=== PATIENT | female | born 1940 | race Caucasian/White ===

== ENCOUNTER 2017-03-13 17:18 | Inpatient (IN) ==
[2017-03-13] MEDS ORDERED: ONDANSETRON 4 MG/2 ML VIAL IV STA (18:14)
[2017-03-13] MEDS ORDERED: ONDANSETRON 4 MG/2 ML VIAL ONE (18:15)
[2017-03-13] MEDS ORDERED: methylPREDNISolone SOD SUC 125 MG/2 ML VIAL IV STA (18:20)
[2017-03-13 18:28] LABS: Basophils # 0.1 10*3/uL (0.0-0.2); Basophils % 0.4 % (0.0-0.8); Eosinophils # 0.1 10*3/uL (0.0-0.87); Eosinophils % 0.6 % (0.00-10.9); Hemoglobin 11.2 GM/DL (12.0-16.0); Immature Granulocytes % 0.6 %; Immature Granulocytes Absolute 0.08 #; Lymphocytes # 1.5 10*3/uL (1.4-4.0); Lymphocytes % 11.6 % (21.3-54.2); Mean Corpuscular HGB Conc 32.9 GM/DL (32-36); Mean Corpuscular Hemoglobin 27 PG (27-34); Mean Corpuscular Volume 83.1 FL (87-102); Monocytes # 0.9 10*3/uL (0.11-0.8); Monocytes % 6.8 % (1.7-12.7); Neutrophils # 10.1 10*3/uL (1.4-7.4); Platelet Count 211 T/CUMM (130-400); Red Blood Count 4.09 MC/CUMM (3.8-5.5); Red Cell Distribution Width 13.8 % (9.3-17.3); White Blood Count 12.6 T/CUMM (4-12)
[2017-03-13] MEDS ORDERED: methylPREDNISolone SOD SUC 125 MG/2 ML VIAL ONE (18:30)
[2017-03-13 18:43] LABS: Albumin 3.6 G/DL (3.4-5.0); Calcium 8.6 MG/DL (8.5-10.1); Osmolality,Calculated 278.5 MOS/KG (273-304); Potassium 3.8 MMOL/L (3.5-5.1); Total Protein 6.6 G/DL (6.4-8.3)
[2017-03-13 18:55] LABS: Apearance,Urine Slightly Hazy (Clear); Bilirubin,Urine Negative (Negative); Blood, Urine Small mg/dL (Negative); Glucose,Urine (UA) Negative (Negative); Ketones,Urine 80 mg/dL (Negative); Mucus,Urine Occasional /LPF (Occasional); Nitrite,Urine Negative (Negative); Protein,Urine 30 MG/DL; RBC,Urine 2 /HPF (0-4); Urine Color Yellow (Yellow); Urine Specific Gravity 1.021 (1.001-1.035); WBC,Urine 1 /HPF (0-6)
[2017-03-13 20:53] LABS: VBG Base Excess -0.5 MEQ/L (0-4); VBG Oxygen Saturation 99.6 %; VBG PCO2 35.8 MMHG (41-51); VBG PH 7.425
[2017-03-13] MEDS ORDERED: cefTRIAXone 1,000 MG in SODIUM CHLORIDE 0.9% 100 ML IV STA (21:08)
[2017-03-13] MEDS ORDERED: AZITHROMYCIN INJ 500 MG in SODIUM CHLORIDE 0.9% 250 ML IV STA (21:09)
[2017-03-13] MEDS ORDERED: cefTRIAXone 1,000 MG VIAL ONE (21:21)
[2017-03-13] MEDS ORDERED: SODIUM CHLORIDE 0.9% 100 ML IV ONE (21:21)
[2017-03-13] MEDS ORDERED: AZITHROMYCIN 500 MG VIAL IV ONE (21:21)
[2017-03-13] MEDS ORDERED: MOMETASONE/FORMOTEROL 100-5 INHALER 8.8 GM INH PRN (22:24)
[2017-03-14] MEDS: ALBUTEROL/IPRATROPIUM 3 ML NEB RESP TX SCH ×4 (00:22→19:36)
[2017-03-14 02:34] LABS: Basophils % 0.2 % (0.0-0.8); Hematocrit 31.2 VOL% (35.7-47.0); Hemoglobin 10.2 GM/DL (12.0-16.0); Immature Granulocytes % 1.1 %; Immature Granulocytes Absolute 0.19 #; Lymphocytes # 0.9 10*3/uL (1.4-4.0); Lymphocytes % 5.4 % (21.3-54.2); Mean Corpuscular HGB Conc 32.7 GM/DL (32-36); Mean Corpuscular Hemoglobin 27 PG (27-34); Mean Platelet Volume 11.2 FL (9.6-12.0); Monocytes # 0.6 10*3/uL (0.11-0.8); Monocytes % 3.4 % (1.7-12.7); Neutrophils # 14.9 10*3/uL (1.4-7.4); Neutrophils % 89.9 % (38.7-73.9); Platelet Count 206 T/CUMM (130-400); Red Blood Count 3.76 MC/CUMM (3.8-5.5); Red Cell Distribution Width 13.8 % (9.3-17.3); White Blood Count 16.6 T/CUMM (4-12)
[2017-03-14 03:15] LABS: Calcium 8.6 MG/DL (8.5-10.1); Osmolality,Calculated 278.8 MOS/KG (273-304); Potassium 3.9 MMOL/L (3.5-5.1)
[2017-03-14] MEDS: methylPREDNISolone SOD SUC 40 MG/1 ML VIAL IV SCH ×3 (06:25→21:21)
[2017-03-14] MEDS ORDERED: SERTRALINE HCL 20 MG PO SCH (21:00)
[2017-03-14] MEDS: FUROSEMIDE 20 MG TABLET PO SCH (21:13)
[2017-03-14] MEDS: SERTRALINE 25 MG TABLET PO SCH (21:13)
[2017-03-14] MEDS: VERAPAMIL 120 MG TABLET PO SCH (21:14)
[2017-03-14] MEDS: ATORVASTATIN 10 MG TABLET PO SCH (21:17)
[2017-03-14] MEDS: AZITHROMYCIN INJ 500 MG in SODIUM CHLORIDE 0.9% 250 ML IV SCH (22:09)
[2017-03-15] MEDS: ALBUTEROL/IPRATROPIUM 3 ML NEB RESP TX SCH ×4 (00:43→19:21)
[2017-03-15] MEDS: methylPREDNISolone SOD SUC 40 MG/1 ML VIAL IV SCH (05:18)
[2017-03-15 05:28] LABS: Basophils % 0.1 % (0.0-0.8); Hematocrit 28.9 VOL% (35.7-47.0); Hemoglobin 9.2 GM/DL (12.0-16.0); Immature Granulocytes % 0.7 %; Immature Granulocytes Absolute 0.07 #; Lymphocytes # 0.7 10*3/uL (1.4-4.0); Lymphocytes % 6.6 % (21.3-54.2); Mean Corpuscular HGB Conc 31.8 GM/DL (32-36); Mean Corpuscular Hemoglobin 27 PG (27-34); Mean Corpuscular Volume 83.5 FL (87-102); Mean Platelet Volume 11.3 FL (9.6-12.0); Monocytes # 0.3 10*3/uL (0.11-0.8); Monocytes % 2.9 % (1.7-12.7); Neutrophils # 9.5 10*3/uL (1.4-7.4); Neutrophils % 89.7 % (38.7-73.9); Platelet Count 215 T/CUMM (130-400); Red Blood Count 3.46 MC/CUMM (3.8-5.5); Red Cell Distribution Width 13.9 % (9.3-17.3); White Blood Count 10.5 T/CUMM (4-12)
[2017-03-15] MEDS ORDERED: DEXTROSE 50% 25 GM/50 ML VIAL IV PRN (08:05)
[2017-03-15] MEDS ORDERED: GLUCAGON 1 MG VIAL IM PRN (08:05)
[2017-03-15] MEDS: predniSONE 20 MG TABLET PO SCH (08:45)
[2017-03-15] MEDS: INSULIN LISPRO 100 UNIT/ML SUBCUT SCH ×3 (13:23→20:52)
[2017-03-15] MEDS: FUROSEMIDE 20 MG TABLET PO SCH (20:43)
[2017-03-15] MEDS: SERTRALINE 25 MG TABLET PO SCH (20:43)
[2017-03-15] MEDS: ATORVASTATIN 10 MG TABLET PO SCH (20:44)
[2017-03-15] MEDS: VERAPAMIL 120 MG TABLET PO SCH (20:44)
[2017-03-15] MEDS: AZITHROMYCIN INJ 500 MG in SODIUM CHLORIDE 0.9% 250 ML IV SCH (21:22)
[2017-03-16] MEDS: ALBUTEROL/IPRATROPIUM 3 ML NEB RESP TX SCH ×4 (00:50→19:56)
[2017-03-16] MEDS: INSULIN LISPRO 100 UNIT/ML SUBCUT SCH ×4 (10:05→22:33)
[2017-03-16] MEDS: predniSONE 20 MG TABLET PO SCH (10:19)
[2017-03-16] MEDS: VERAPAMIL 120 MG TABLET PO SCH (21:03)
[2017-03-16] MEDS: ATORVASTATIN 10 MG TABLET PO SCH (21:04)
[2017-03-16] MEDS: FUROSEMIDE 20 MG TABLET PO SCH (21:04)
[2017-03-16] MEDS: SERTRALINE 25 MG TABLET PO SCH (21:04)
[2017-03-16] MEDS: AZITHROMYCIN INJ 500 MG in SODIUM CHLORIDE 0.9% 250 ML IV SCH (21:07)
[2017-03-17] MEDS: ALBUTEROL/IPRATROPIUM 3 ML NEB RESP TX SCH ×4 (00:14→19:08)
[2017-03-17] MEDS: INSULIN LISPRO 100 UNIT/ML SUBCUT SCH ×4 (08:57→23:28)
[2017-03-17] MEDS: predniSONE 20 MG TABLET PO SCH (08:58)
[2017-03-17] MEDS: ACETAMINOPHEN 500 MG TABLET PO PRN ×2 (10:16→18:14)
[2017-03-17] MEDS ORDERED: FUROSEMIDE 20 MG TABLET PO SCH (18:30)
[2017-03-17] MEDS: SERTRALINE 25 MG TABLET PO SCH (20:43)
[2017-03-17] MEDS: ATORVASTATIN 10 MG TABLET PO SCH (20:43)
[2017-03-17] MEDS: VERAPAMIL 120 MG TABLET PO SCH (20:43)
[2017-03-17] MEDS: AZITHROMYCIN INJ 500 MG in SODIUM CHLORIDE 0.9% 250 ML IV SCH (22:24)
[2017-03-17] MEDS: PANTOPRAZOLE 40 MG TABLET PO SCH (23:26)
[2017-03-18] MEDS: ALBUTEROL/IPRATROPIUM 3 ML NEB RESP TX SCH ×2 (00:10→07:20)
[2017-03-18] MEDS: INSULIN LISPRO 100 UNIT/ML SUBCUT SCH ×2 (08:39→11:20)
[2017-03-18] MEDS: predniSONE 20 MG TABLET PO SCH (08:41)
[2017-03-18] MEDS: PANTOPRAZOLE 40 MG TABLET PO SCH (08:41)
[2017-03-18 11:46] VITALS: BP 108/76
== END 2017-03-18 14:00 | disposition home or self-care (01) | DRG 190 ==
LOC: EDUNIT# → EDBD → N.ED 17:18 → N.EDINP 21:36 → SUATTDRO 21:36 → N.2E 22:22
PROVIDERS: ADMIT Internal Medicine Nephrology; ATTEND Internal Medicine